=== PATIENT | female | born 1955 | race Two or more races ===

== ENCOUNTER 2022-11-28 13:02 | Outpatient (CLI) | payer OTHER | END 2022-11-28 13:12 | disposition home or self-care (01) | LOC: RAD 13:02 | PROVIDERS: ATTEND Orthopaedic Surgery | DX: M25.561 Pain in right knee (principal); M25.562 Pain in left knee ==

== ENCOUNTER 2022-12-06 07:23 | Outpatient (CLI) | payer OTHER | END 2022-12-06 07:41 | disposition home or self-care (01) | LOC: MRI 07:23 | PROVIDERS: ATTEND Orthopaedic Surgery | DX: S83.202A Bucket-handle tear of unspecified meniscus, current injury, unspecified knee, initial encounter (principal) | CPT/HCPCS: 73721 ==